=== PATIENT | male | born 1955 | race Hispanic/Latino ===

== ENCOUNTER 2018-07-25 08:04 | Emergency (ER) | payer OTHER | END 2018-07-25 08:40 | disposition home or self-care (01) | LOC: EDH 08:04 | DX: J40 Bronchitis, not specified as acute or chronic (principal); L30.9 Dermatitis, unspecified; K21.9 Gastro-esophageal reflux disease without esophagitis; Z88.6 Allergy status to analgesic agent; Z90.49 Acquired absence of other specified parts of digestive tract ==